=== PATIENT | female | born 1970 | race Caucasian/White ===

== ENCOUNTER 2018-08-09 12:11 | Outpatient (CLI) | payer OTHER ==
--- NOTE | 2018-08-09 14:33 | MRI ---
MRI CERVICAL SPINE WITHOUT CONTRAST: HISTORY: Neck pain. The patient states she was running after a dog and the next day she started having neck p ain down both extremities, right greater than left. There is associated numbness and tingling. COMPARISON: None. TECHNIQUE: Cervical spine MRI is performed without intravenous Gadolinium administration. Multisequential, mult iplanar imaging is performed. FINDINGS: Appropriate T1 marrow signal intensity of the cervical vertebrae. Cervical spine vertebral body heig ht is maintained. There is no fracture. No significant STIR hyperintensity to suggest vertebral bod y edema or ligamentous injury. There is 1 mm of retrolisthesis of C3 upon C4 and 1.3 mm retrolisthes is of retrolisthesis of C5 upon C6. No significant STIR hyperintensity to suggest edema or ligamentous injury. Visualized brain parenchyma, cervicomedullary junction, cervical cord, and the upper thoracic cord hutchinson ve an overall normal size and signal intensity. C2-C3: No significant disk-osteophyte complex. No significant central canal stenosis. Neural austin en are patent. C3-C4: Broad-based disk-osteophyte complex abuts the thecal sac. Ventral subarachnoid space is effa lima. There is at least mild to moderate central canal stenosis. Degenerative changes of bilateral u ncovertebral joints results in mild bilateral neural foraminal narrowing. C4-C5: There is a central/paracentral disk-osteophyte complex that abuts the thecal sac. Mild defor mity of the left hemicord without T2 hyperintensity of the cord. Mild to moderate central canal sten osis. Degenerative change in bilateral uncovertebral joints results in moderate right and moderate l eft foraminal narrowing. C5-C6: Broad-based disk-osteophyte complex at the left parasternal component. Moderate central julianne l stenosis. There is deformity of the ventral cord, without T2 hyperintensity of the cord. Moderate to severe bilateral foraminal narrowing. C6-C7: Central disk-osteophyte complex abuts the thecal sac. There is no significant central canal stenosis. Moderate right and left foraminal narrowing. C7-T1: No significant disk-osteophyte complex. NO significant central canal stenosis. Neural austin en are patent. IMPRESSION: Moderate central canal stenosis at C5-C6. There are varying degrees of significant foraminal stenosi s throughout the cervical spine as detailed above. POS: [facility]
--- NOTE | 2018-08-09 14:57 | MRI ---
MRI LUMBAR SPINE NONCONTRAST: 08/09/18 HISTORY: Low back pain. Right leg radiculopathy. FINDINGS: Radiographs not available for direct correlation, therefore the lowest lumbar type vertebra will be d esignated as L5, with the remainder numbered accordingly. Cysts arise from the cortex of the partiall y visualized left kidney. The conus medullaris has a normal appearance. Superior most image shows brant iccation of the disc at the T11-12 level and posterior disc bulge that effaces the ventral aspect of the thecal sac. T12-L1, L1-2, L2-3: Mild osteophytosis. Central canal and neural foramina are patent. L3-4: Minimal degenerative retrolisthesis. Thecal sac is patent. Osseous hypertrophy of each facet. N o significant foraminal stenosis. L4-5: Minimal disc bulge. Prominent posterior facet and ligamentous hypertrophy. Mild stenosis of the central canal. Neural foramina remain patent. L5-S1: Disc space narrowing. Minimal degenerative retrolisthesis. Mild facet hypertrophy. Thecal sac and neural foramina are patent. IMPRESSION: Mild degenerative changes lower lumbar spine, including mild central canal stenosis at the L4-5 level . No focal disc herniation or nerve root compression. At the partially visualized lower thoracic spine, posterior disc bulge is evident at the T11-12 level without significant compression of the conus medullaris. POS: [facility]
--- NOTE | 2018-08-09 15:30 | MRI ---
MRI OF THE RIGHT HIP WITHOUT CONTRAST: INDICATION: Right hip pain after running after her dog. COMPARISON: None. FINDINGS: There is osteonecrosis involving the anterior and superior aspect of the right femoral head. No defi nite subchondral collapse is evident. There is mild degenerative arthrosis involving both hips. No additional acute osseous abnormality is evident. No definite trochanteric or iliopsoas bursitis is evident. No muscular atrophy is evident. No ingui nal lymphadenopathy is noted. No large joint effusion is present. The hamstring origins and right r ectus femoris origin appears within normal limits. Visualized intrapelvic contents appear within normal limits. A small amount of free fluid is seen within pelvis. IMPRESSION: 1. Osteonecrosis of the anterior superior aspect of the right femoral head without evidence of subch ondral collapse. 2. Mild degenerative arthrosis of both hips, right greater than left. POS: [facility]
== END 2018-08-09 12:12 | disposition home or self-care (01) ==
LOC: BICMRI 12:11
PROVIDERS: ATTEND Family Medicine
DX: M25.551 Pain in right hip (principal); M54.12 Radiculopathy, cervical region; M16.0 Bilateral primary osteoarthritis of hip; M47.26 Other spondylosis with radiculopathy, lumbar region; M48.061 Spinal stenosis, lumbar region without neurogenic claudication; M51.84 Other intervertebral disc disorders, thoracic region; M48.02 Spinal stenosis, cervical region; M99.81 Other biomechanical lesions of cervical region
CPT/HCPCS: 72141; 72148

== ENCOUNTER 2018-09-12 14:16 | Outpatient (CLI) | payer OTHER ==
--- NOTE | 2018-09-12 16:12 | RAD ---
CERVICAL SPINE THREE VIEWS: History: 48-year-old female with history of cervical spondylolisthesis. Neck pain. Cervical radiculopathy. FINDINGS: AP, lateral, and open mouth views of the cervical spine performed. There is some soft tissue gas dors ally, evidence for prior injection. C7 and C7-T1 and T1 are obscured on the lateral view. Disc osteop hytosis, particularly at C5-6. No prevertebral soft tissue swelling. Uncal vertebral and facet arthro sis changes bilaterally. IMPRESSION: Cervical spondylosis most marked at C5-6. POS: [facility]
--- NOTE | 2018-09-12 17:08 | RAD ---
LUMBAR SPINE FOUR VIEWS: History: 48-year-old female with history of spondylolisthesis lumbar region. Low back pain. FINDINGS: There is some generalized changes of spondylosis with some disc space narrowing and disc osteophytosi s as well as some generalized facet arthrosis. No evidence for significant anterior or retrolisthesis or abnormal translation between flexion and extension. IMPRESSION: Lumbar spondylosis. No abnormal translation between flexion and extension. POS: [facility]
== END 2018-09-12 14:17 | disposition home or self-care (01) ==
LOC: TBSIIMAG 14:16
PROVIDERS: ATTEND Specialist
DX: M43.12 Spondylolisthesis, cervical region (principal); M43.16 Spondylolisthesis, lumbar region; M47.896 Other spondylosis, lumbar region; M47.892 Other spondylosis, cervical region
CPT/HCPCS: 72050; 72110